=== PATIENT | female | born 1955 ===

== ENCOUNTER 2018-04-11 12:16 | Emergency (ER) | payer MEDICAID ==
[2018-04-11 12:16] VITALS: BMI 20.1
[2018-04-11 12:35] VITALS: TEMP 98; O2SAT 99
[2018-04-11] MEDS ORDERED: Sodium Chloride 0.9% 1,000 ML IV STA (13:22)
[2018-04-11 13:56] LABS: BASO % 0.7 % (0.0-2.0); EOS % 0.7 % (0.0-4.0); HEMOGLOBIN 14.6 g/dL (12.0-16.0); LYMPH # 1.6 K/uL (1.0-4.3); LYMPH % 23.1 % (20.0-40.0); MEAN CELL VOLUME 88.5 fl (81.0-99.0); MEAN CORPUSCULAR HEMOGLOBIN 30.1 pg (27.0-31.0); MEAN PLATELET VOLUME 7.4 fl (7.2-11.7); MONO # 0.8 K/uL (0.0-0.8); MONO % 10.8 % (0.0-10.0); NEUT # 4.5 K/uL (1.8-7.0); NEUT % 64.7 % (50.0-75.0); NRBC % 0.2 % (0.0-0.0); RBC 4.85 Mil/uL (3.80-5.20); RED CELL DISTRIBUTION WIDTH 14.7 % (11.5-14.5)
[2018-04-11 14:05] LABS: ALB/GLOB RATIO 1.6 (1.0-2.1); ALBUMIN 4.3 g/dL (3.5-5.0); ALT/SGPT 41 U/L (9-52); AST/SGOT 33 U/L (14-36); BLOOD UREA NITROGEN 16 mg/dl (7-17); CALCIUM 10.3 mg/dL (8.4-10.2); GFR AFRICAN-AMERICAN > 60; GFR NON-AFRICAN AMERICAN > 60; LIPASE 71 U/L (23-300)
--- NOTE | 2018-04-11 14:32 | ED PDOC ---
HPI: Abdomen Time Seen by Provider: 04/11/18 13:06 Chief Complaint (Nursing): Abdominal Pain Chief Complaint (Provider): Abdominal Pain History Per: Patient History/Exam Limitations: no limitations Onset/Duration Of Symptoms: Days (x2) Outside of [place] travel?: Yes Other Location:: [facility] Current Symptoms Are (Timing): Still Present Location Of Pain/Discomfort: Diffuse (upper > lower) Quality Of Discomfort: "Pain" Associated Symptoms: Nausea, Vomiting, Diarrhea. denies: Fever, Chills, Chest Pain, Urinary Symptoms Additional Complaint(s): 62 y/o female with a PMHx of HTN, CVA, depression and anxiety presents to the ED for evaluation of diffuse abdominal pain (upper > lower), onset two days ago. Patient states pain is sharp and intermittent. Patient reports pain is associated with nausea, 5 episodes of non-bloody diarrhea, and 3 episodes of non -bilious, non-bloody vomiting. Patient reports of recent travel to the [facility] two months ago but has felt fine since return until recently. Otherwise: (-) fever, (-) chills, (-) urinary symptoms, (-) cough, (- ) shortness of breath, (-) chest pain, (-) sick contacts. Patient took no medications prior to arrival in ED. PMD: Shanon Rogers Past Medical History Reviewed: Historical Data, Nursing Documentation, Vital Signs Vital Signs: Last Vital Signs Temp 98.0 F 04/11/18 12:33 Pulse 62 04/11/18 17:53 Resp 18 04/11/18 17:53 BP 140/70 04/11/18 17:53 Pulse Ox 99 04/11/18 17:53 - Medical History PMH: Anxiety, Asthma, CVA, Depression, HTN, Hypercholesterolemia - Surgical History Surgical History: No Surg Hx - Family History Family History: States: Unknown Family Hx - Social History Current smoker - smoking cessation education provided: No Alcohol: None Drugs: Denies - Home Medications Home Medications: Ambulatory Orders Medication Instructions Recorded Alprazolam [Xanax] 2 mg PO BID 08/29/17 Aspirin [Ecotrin] 81 mg PO DAILY 08/29/17 Hydrochlorothiazide [Microzide] 08/29/17 Metoprolol Succinate 50 mg PO BID 08/29/17 TEGretol mg PO DAILY 08/29/17 amLODIPine [Norvasc] 5 mg PO DAILY 08/29/17 Acetaminophen with Codeine 1 each PO Q6 #8 tablet 08/30/17 [Tylenol with Codeine #3 Tablet] Ibuprofen [Motrin] 600 mg PO TID #30 tab 08/30/17 Dicyclomine [Bentyl] 20 mg PO TID PRN #12 tab 04/11/18 Nitrofurantoin Macrocrystals 100 mg PO BID #14 cap 04/11/18 [Macrobid] Ondansetron ODT [Zofran ODT] 8 mg PO Q8 PRN #12 odt 04/11/18 - Allergies Allergies/Adverse Reactions: Allergies Allergy/AdvReac Type Severity Reaction Status Date / Time penicillin G Allergy Mild RASH Verified 08/02/16 11:18 Review of Systems ROS Statement: Except As Marked, All Systems Reviewed And Found Negative Constitutional: Negative for: Fever, Chills Cardiovascular: Negative for: Chest Pain Respiratory: Negative for: Cough, Shortness of Breath Gastrointestinal: Positive for: Nausea, Vomiting, Abdominal Pain, Diarrhea Genitourinary Female: Negative for: Dysuria, Frequency, Hematuria Physical Exam - Reviewed Nursing Documentation Reviewed: Yes Vital Signs Reviewed: Yes - Physical Exam Comments: GENERAL APPEARANCE: Patient is awake, alert, oriented x 3, in no distress. Resting comfortably. SKIN: Warm, dry; (-) cyanosis. EYES: EOMI and painless. (-) conjunctival pallor, (-) scleral icterus. ENMT: Mucous membranes moist. Airway patent, (-) stridor. NECK: Supple, FROM CHEST AND RESPIRATORY: (-) rales, (-) rhonchi, (-) wheezes; breath sounds equal bilaterally. Respirations even and nonlabored, speaking in full sentences. HEART AND CARDIOVASCULAR: (-) irregularity; (-) murmur ABDOMEN AND GI: (-) distention. Bowel sounds active x4; Soft; (+) tenderness to the right upper and left upper quadrant (-) guarding, (-) rebound, (-) palpable masses (-) Nagel's, (-) CVA tenderness. EXTREMITIES: (-) deformity, (-) edema, (+) distal pulses. NEURO AND PSYCH: Mental status as above; (-) focal findings (-) facial asymmetry. Speech clear, gait steady. - Laboratory Results Result Diagrams: 04/11/18 13:44 04/11/18 13:44 Urine dip results: Positive for: Leukocyte Esterase (trace), Blood (trace-intact ), Protein (30). Negative for: Nitrate, Ketones, Glucose, Bilirubin - ECG O2 Sat by Pulse Oximetry: 99 (RA) Pulse Ox Interpretation: Normal Medical Decision Making Medical Decision Making: Time: 1322 Impression: Abdominal pain, nausea, vomiting and diarrhea Plan: -- Sodium Chloride IV 999 mls/hr -- Pepcid 40 mg IVP -- Toradol 30 mg IVP -- Zofran Inj 4 mg IVP -- Chainstitch Pants Outseamer -- IV Insertion -- Glucose, Blood, POC -- CMP -- Lipase -- ED Urine Dipstick -- CBC with differentials -- Bentyl 20 mg PO Time: 1430 CBC and CMP grossly unremarkable. No elevation of LFTs. Lipase WNL. Time: 1630 Udip reviewed. U/A and U/C ordered. Patient tolerating PO intake in ED. 1725 U/A reviewed. Macrobid 100mg PO ordered. On re-evaluation, patient reports resolution of symptoms. On exam, patient remains AAOx3, in no acute distress. Lungs clear to auscultation, cardiac RRR, abdomen soft, non-tender, repeat neuro exam shows no focal findings. VSS, stable for discharge. Forest diet and fluids encouraged. Lab/Diagnostic results d/w the patient in great detail. Diagnosis of abdominal pain, nausea, vomiting, diarrhea; UTI d/w the patient. Based on history, exam and diagnostic results, plan will be for outpatient follow up. Patient instructed to follow-up with pmd / referral provided / the clinic in 1- 2 days without fail. Advised to take medication as prescribed. Return to the emergency room at any time for any new or worsening symptoms. Patient states she fully agrees with and understands discharge instructions. States that she agrees with the plan and disposition. Verbalized and repeated discharge instructions and plan. I have given the patient opportunity to ask any additional questions. __ Scribe Attestation: Documented by Tri Villar acting as a scribe for Kenya Au PA-C. Provider Scribe Attestation: All medical record entries made by the Scribe were at my direction and personally dictated by me. I have reviewed the chart and agree that the record accurately reflects my personal performance of the history, physical exam, medical decision making, and the department course for this patient. I have also personally directed, reviewed, and agree with the discharge instructions and disposition. Disposition - Clinical Impression Clinical Impression: Abdominal pain, Nausea and vomiting, Diarrhea, UTI (urinary tract infection) - Patient ED Disposition Is Patient to be Admitted: No Counseled Patient/Family Regarding: Studies Performed, Diagnosis, Need For Followup, Rx Given - Disposition Referrals: Quique Rogers MD [Medical Doctor] - Disposition: Routine/Home Disposition Time: 17:33 Condition: STABLE Additional Instructions: The emergency medical care you received today was directed at your acute symptoms. If you were prescribed any medication, please fill it and take as directed. It may take several days for your symptoms to resolve. Return to the Emergency Department if your symptoms worsen, do not improve, or if you have any other problems. Please contact your doctor in 2 days for re-evaluation and follow up / or call one of the physicians/clinics you have been referred to that are listed on the Patient Visit Information form that is included in your discharge packet. Bring any paperwork you were given at discharge with you along with any medications you are taking to your follow up visit. Our treatment cannot replace ongoing medical care by a primary care provider (PCP) outside of the emergency department. Thank you for allowing the [facility] team to be part of your care today. If you had a urine / blood culture test done : We will call you regarding any positive results If you had a STD test done : We will call you regarding any positive results If you had an X-Ray : A Radiologist will review the ED reading if any change in treatment is needed we will contact you. Prescriptions: Dicyclomine [Bentyl] 20 mg PO TID PRN #12 tab PRN Reason: Diarrhea Nitrofurantoin Macrocrystals [Macrobid] 100 mg PO BID #14 cap Ondansetron ODT [Zofran ODT] 8 mg PO Q8 PRN #12 odt PRN Reason: Nausea/Vomiting Instructions: Urinary Tract Infections in Adults, Diarrhea in Adolescents and Adults, Forest Diet, Acute Abdomen (Belly Pain), Nausea and Vomiting, Adult Forms: [employer] (Sami) Print Language: HUNGARIAN - POA Present On Arrival: None Results - Lab Results Lab Results: 04/11/18 04/11/18 04/11/18 16:39 13:59 13:44 WBC RBC Hgb Hct MCV MCH MCHC RDW Plt Count MPV Neut % (Auto) Lymph % (Auto) [place] % (Auto) Eos % (Auto) Baso % (Auto) Neut # (Auto) Lymph # (Auto) [place] # (Auto) Eos # (Auto) Baso # (Auto) Sodium 141 Potassium 4.3 Chloride 101 Carbon Dioxide 30 Anion Gap 14 BUN 16 Creatinine 0.5 L Est GFR ( Amer) > 60 Est GFR (Non-Af Amer) > 60 POC Glucose (mg/dL) 93 Random Glucose 99 Calcium 10.3 H Total Bilirubin 0.7 AST 33 ALT 41 Alkaline Phosphatase 87 Total Protein 7.0 Albumin 4.3 Globulin 2.7 Albumin/Globulin Ratio 1.6 Lipase 71 Urine Color Straw Urine Clarity Clear Urine pH 6.0 Ur Specific [place] 1.009 Urine Protein Negative Urine Glucose (UA) Neg Urine Ketones Negative Urine Blood Small Urine Nitrate Negative Urine Bilirubin Negative Urine Urobilinogen 0.2-1.0 Ur Leukocyte Esterase Trace Urine RBC (Auto) 2 Urine Microscopic WBC 1 Ur Squamous Epith Cells 1 Urine Bacteria Rare 04/11/18 13:44 WBC 7.0 RBC 4.85 Hgb 14.6 Hct 43.0 MCV 88.5 MCH 30.1 MCHC 34.0 RDW 14.7 H Plt Count 312 MPV 7.4 Neut % (Auto) 64.7 Lymph % (Auto) 23.1 [place] % (Auto) 10.8 H Eos % (Auto) 0.7 Baso % (Auto) 0.7 Neut # (Auto) 4.5 Lymph # (Auto) 1.6 [place] # (Auto) 0.8 Eos # (Auto) 0.0 Baso # (Auto) 0.0 Sodium Potassium Chloride Carbon Dioxide Anion Gap BUN Creatinine Est GFR ( Amer) Est GFR (Non-Af Amer) POC Glucose (mg/dL) Random Glucose Calcium Total Bilirubin AST ALT Alkaline Phosphatase Total Protein Albumin Globulin Albumin/Globulin Ratio Lipase Urine Color Urine Clarity Urine pH Ur Specific [place] Urine Protein Urine Glucose (UA) Urine Ketones Urine Blood Urine Nitrate Urine Bilirubin Urine Urobilinogen Ur Leukocyte Esterase Urine RBC (Auto) Urine Microscopic WBC Ur Squamous Epith Cells Urine Bacteria
[2018-04-11 17:27] LABS: SQUAMOUS EPITHIAL 1 /hpf (0-5); URINE BACTERIA RARE (<OCC); URINE BILIRUBIN NEGATIVE (NEGATIVE); URINE BLOOD SMALL (NEGATIVE); URINE CLARITY CLEAR (Clear); URINE COLOR STRAW (YELLOW); URINE GLUCOSE (UA) NEG (Normal); URINE LEUKOCYTE ESTERASE TRACE Leu/uL (Negative); URINE PROTEIN NEGATIVE (NEGATIVE); URINE UROBILINOGEN 0.2-1.0 mg/dL (0.2-1.0)
[2018-04-11 17:54] VITALS: BP 140/70; PULSE 62; RESP 18
== END 2018-04-11 17:52 | disposition home or self-care (01) ==
LOC: H.ER 12:16
DX: N39.0 Urinary tract infection, site not specified (principal); R10.9 Unspecified abdominal pain; R11.2 Nausea with vomiting, unspecified; R19.7 Diarrhea, unspecified; I10 Essential (primary) hypertension; E78.00 Pure hypercholesterolemia, unspecified; Z86.73 Personal history of transient ischemic attack (TIA), and cerebral infarction without residual deficits; Z87.891 Personal history of nicotine dependence
CPT/HCPCS: 80053; 81003; 82948; 83690; 85025; 87086; 96374; 96375; 99284; J1885; J2405; J7030

== ENCOUNTER 2018-07-05 06:07 | Emergency (ER) | payer MEDICAID ==
[2018-07-05 06:08] VITALS: BMI 20.1
[2018-07-05 06:21] VITALS: BP 156/79; PULSE 67; RESP 16; TEMP 97.7; O2SAT 100
--- NOTE | 2018-07-05 07:46 | ED PDOC ---
HPI: Back Time Seen by Provider: 07/05/18 07:06 Chief Complaint (Nursing): Hip Pain Chief Complaint (Provider): Hip Pain History Per: Patient History/Exam Limitations: no limitations Onset/Duration Of Symptoms: Days (x 2) Quality Of Discomfort: "Pain" Additional Complaint(s): 62 year old female with a history of CVA, back spasms and HTN presents to the ED with left sided back spasms and left leg pain. Pain is located in left upper and lower back as well as the entire left leg above the knee. Patient reports she has a history of similar symptoms and usually takes oxycodone. She took her medication last night without relief. Otherwise, denies numbness, tingling, nausea, vomiting, incontinence, constipation, chest pain, abdominal pain and other medical complaints. PMD: Dr. Rogers Past Medical History Reviewed: Historical Data, Nursing Documentation, Vital Signs Vital Signs: Last Vital Signs Temp 97.7 F 07/05/18 06:18 Pulse 67 07/05/18 06:18 Resp 16 07/05/18 06:18 BP 156/79 H 07/05/18 06:18 Pulse Ox 100 07/05/18 06:18 - Medical History PMH: Anxiety, Asthma, CVA (left foot drop as residual deficit), Depression, HTN, Hypercholesterolemia, Migraine, Seizures - Surgical History Surgical History: No Surg Hx - Family History Family History: States: Unknown Family Hx - Immunization History Hx Tetanus Toxoid Vaccination: Yes Hx Influenza Vaccination: Yes Hx Pneumococcal Vaccination: Yes - Home Medications Home Medications: Ambulatory Orders Medication Instructions Recorded Alprazolam [Xanax] 2 mg PO BID 08/29/17 Aspirin [Ecotrin] 81 mg PO DAILY 08/29/17 Hydrochlorothiazide [Microzide] 08/29/17 Metoprolol Succinate 50 mg PO BID 08/29/17 TEGretol mg PO DAILY 08/29/17 amLODIPine [Norvasc] 5 mg PO DAILY 08/29/17 Acetaminophen with Codeine 1 each PO Q6 #8 tablet 08/30/17 [Tylenol with Codeine #3 Tablet] Ibuprofen [Motrin] 600 mg PO TID #30 tab 08/30/17 Dicyclomine [Bentyl] 20 mg PO TID PRN #12 tab 04/11/18 Nitrofurantoin Macrocrystals 100 mg PO BID #14 cap 04/11/18 [Macrobid] Ondansetron ODT [Zofran ODT] 8 mg PO Q8 PRN #12 odt 04/11/18 Diazepam [Valium] 2 mg PO BID PRN #6 tab 07/05/18 Ibuprofen [Motrin] 600 mg PO TID 7 Days tab 07/05/18 - Allergies Allergies/Adverse Reactions: Allergies Allergy/AdvReac Type Severity Reaction Status Date / Time penicillin G Allergy Mild RASH Verified 07/05/18 06:18 Review of Systems ROS Statement: Except As Marked, All Systems Reviewed And Found Negative Constitutional: Negative for: Weakness Cardiovascular: Negative for: Chest Pain Respiratory: Negative for: Shortness of Breath Gastrointestinal: Negative for: Nausea, Vomiting, Abdominal Pain, Constipation, Rectal Pain Genitourinary Female: Negative for: Incontinence Musculoskeletal: Positive for: Back Pain (left upper and lower ), Leg Pain (left upper ) Neurological: Negative for: Weakness, Numbness Physical Exam - Reviewed Nursing Documentation Reviewed: Yes Vital Signs Reviewed: Yes - Physical Exam Appears: Positive for: Non-toxic, No Acute Distress Head Exam: Positive for: ATRAUMATIC, NORMAL INSPECTION, NORMOCEPHALIC Skin: Positive for: Normal Color, Warm, Dry Eye Exam: Positive for: EOMI, Normal appearance, PERRL Neck: Positive for: Normal, Painless ROM, Supple Cardiovascular/Chest: Positive for: Regular Rate, Rhythm. Negative for: Murmur Respiratory: Positive for: Normal Breath Sounds. Negative for: Respiratory Distress Pulses-Dorsalis Pedis (L): 2+ Gastrointestinal/Abdominal: Positive for: Normal Exam, Soft. Negative for: Tenderness Back: Positive for: Other (mild tenderness left upper and lower back ) Extremity: Positive for: Normal ROM (full ROM of left leg with pain), Tenderness (mild tenderness in posterior and anterior upper left leg ). Negative for: Calf Tenderness (or knee tenderness), Swelling (leg swelling) Neurologic/Psych: Positive for: Alert, Oriented. Negative for: Motor/Sensory Deficits - ECG O2 Sat by Pulse Oximetry: 100 (RA) Pulse Ox Interpretation: Normal - Progress ED Course And Treament: 945: Stable. AAOx3. Pain improved. Fu with pcp. Ambulating. Medical Decision Making Medical Decision Makin:39 Impression: left back and leg pain Initial Plan: --Toradol 15 mg IM --Valium 5 mg PO Scribe Attestation: Documented by Honey Pang acting as a scribe for Adelso Choudhary MD Provider Scribe Attestation: All medical record entries made by the Scribe were at my direction and personally dictated by me. I have reviewed the chart and agree that the record accurately reflects my personal performance of the history, physical exam, medical decision making, and the department course for this patient. I have also personally directed, reviewed, and agree with the discharge instructions and disposition. Disposition - Clinical Impression Clinical Impression: Muscle spasm - Patient ED Disposition Is Patient to be Admitted: No Counseled Patient/Family Regarding: Diagnosis, Need For Followup, Rx Given - Disposition Referrals: [facility] [Outside] - 07/09/18 Disposition: Routine/Home Disposition Time: 09:46 Condition: STABLE Additional Instructions: Return if not better in 3 days. Prescriptions: Diazepam [Valium] 2 mg PO BID PRN #6 tab PRN Reason: Muscle Spasm Ibuprofen [Motrin] 600 mg PO TID 7 Days tab Instructions: Muscle Spasms (DC) Forms: [employer] (Beninese)
[2018-07-05] MEDS ORDERED: Morphine 4 MG/ML VIAL IM ONE (09:51)
[2018-07-05] MEDS ORDERED: Morphine 4 MG/ML VIAL ONE (09:55)
== END 2018-07-05 10:43 | disposition home or self-care (01) ==
LOC: H.ER 06:07
DX: M62.830 Muscle spasm of back (principal)
CPT/HCPCS: 96372; 99283; J1885; J2270